=== PATIENT | female | born 1985 | race American Indian/Alaskan Native ===

== ENCOUNTER 2019-03-17 04:46 | Emergency (ER) | payer SELFPAY ==
[2019-03-17 05:29] LABS: Bilirubin,Urine NEG (Negative); Blood,Urine MOD (Negative); Color,Urine Yellow (Yellow); Urobilinogen,Urine < 2.0 mg/dL (<2.0); WBC,Urine < 1.0 /HPF (0.0-6.0)
[2019-03-17 05:31] LABS: Hematocrit 32.1 % (30.3-42.9); Hemoglobin 10.6 gm/dl (10.1-14.3); Mean Corpuscular HGB Conc 33 % (30-34); Mean Corpuscular Volume 78 fl (79-97); Platelet Count 320 K/mm3 (140-440); Red Cell Distribution Width 15.6 % (13.2-15.2)
[2019-03-17 05:31] LABS: Amphetamine Screen,Urine PRESUMPTIVE NEGATIVE; Benzodiazepines Screen,Urine PRESUMPTIVE NEGATIVE; Cannabinoid Screen,Urine PRESUMPTIVE NEGATIVE; Cocaine Screen,Urine PRESUMPTIVE NEGATIVE; Methadone Screen,Urine PRESUMPTIVE NEGATIVE; Opiate Screen,Urine PRESUMPTIVE NEGATIVE
[2019-03-17 05:49] LABS: BUN/Creatinine Ratio 11; Blood Urea Nitrogen 8 mg/dL (7-17); Calcium 8.6 mg/dL (8.4-10.2); Hemolysis Index 2
[2019-03-17] MEDS ORDERED: levETIRAcetam 1000 MG/NS 0.75% 1,000 MG/100 ML BAG IV ONE (06:33)
--- NOTE | 2019-03-17 06:34 | Emergency Department Report ---
ED Seizure HPI - General Chief Complaint: Seizure Stated Complaint: SEIZURE Time Seen by Provider: 03/17/19 06:09 Source: patient, EMS (EMS records not available at time of chart dictation.) Mode of arrival: Stretcher Limitations: No Limitations - History of Present Illness Initial Comments: The patient is a 33-year-old female. This patient is not known to this provider previously. The patient reports that she is not , and reports that she has not delivered her given within the past 6 weeks. During the history and physical examination, I am station cook and escorted by nurse Caesar Rawls The patient was recently seen at [facility], for a complaint of breakthrough seizure. She was given a prescription for Keppra. Apparently, the patient has not filled this prescription. She was at a fdc this evening, and reportedly had a seizure. The details of this seizure are not known. The patient states she has been in the [place] one [place], after moving from [facility]. At the moment, she denies headache, neck pain, chest pain, abdominal pain, shortness of breath or urinary symptoms, and she is asking to go home. MD Complaint: seizure -: Sudden Seizure History: known seizure disorder, history of non-compliance Place: other (fdc) Possible Precipitating Event: other (medication noncompliance) Associated Symptoms: denies other symptoms - Related Data Previous Rx's Medication Instructions Recorded Last Taken Type Amlodipine Besylate [Norvasc] 5 mg PO QDAY #30 tablet 03/17/19 Unknown Rx Magnesium Oxide [Magnesium] 400 mg PO QDAY #14 capsule 03/17/19 Unknown Rx levETIRAcetam [Keppra TAB] 500 mg PO BID #60 tablet 03/17/19 Unknown Rx Allergies Allergy/AdvReac Type Severity Reaction Status Date / Time No Known Allergies Allergy Unverified 03/17/19 05:05 ED Review of Systems ROS: Stated complaint: SEIZURE Other details as noted in HPI Constitutional: denies: fever Eyes: denies: eye discharge ENT: denies: congestion Respiratory: denies: wheezing Cardiovascular: denies: edema Gastrointestinal: denies: vomiting Genitourinary: denies: dysuria Skin: denies: lesions Neurological: denies: confusion Hematological/Lymphatic: denies: easy bleeding ED Past Medical Hx - Past Medical History Previous Medical History?: Yes Hx Hypertension: Yes Hx Seizures: Yes - Social History Smoking Status: Never Smoker Substance Use Type: None - Medications Home Medications: Home Medications Medication Instructions Recorded Confirmed Last Taken Type Amlodipine Besylate [Norvasc] 5 mg PO QDAY #30 tablet 03/17/19 Unknown Rx Magnesium Oxide [Magnesium] 400 mg PO QDAY #14 capsule 03/17/19 Unknown Rx levETIRAcetam [Keppra TAB] 500 mg PO BID #60 tablet 03/17/19 Unknown Rx ED Physical Exam - General Limitations: No Limitations General appearance: alert, in no apparent distress - Head Head exam: Present: atraumatic, normocephalic - Eye Eye exam: Present: normal appearance, PERRL, EOMI, other (visual acuity intact to finger counting in color perception on a close distance). Absent: nystagmus - ENT ENT exam: Present: normal exam, normal orophraynx, mucous membranes moist, normal external ear exam - Neck Neck exam: Present: normal inspection, full ROM. Absent: tenderness, meni ngismus - Respiratory Respiratory exam: Present: normal lung sounds bilaterally. Absent: respiratory distress - Cardiovascular Cardiovascular Exam: Present: regular rate, normal rhythm, normal heart sounds. Absent: bradycardia, tachycardia, irregular rhythm, systolic murmur, diastolic murmur, rubs, gallop - GI/Abdominal GI/Abdominal exam: Present: soft, normal bowel sounds. Absent: distended, tenderness, guarding, rebound, rigid, pulsatile mass - Extremities Exam Extremities exam: Present: normal inspection, full ROM, other (2+ pulses noted in the bilateral upper and lower extremities. The pelvis is stable. There is no long bony tenderness. The muscular compartments are soft. There is no redness, pus, streaking or erythema.). Absent: pedal edema, joint swelling, calf tenderness - Back Exam Back exam: Present: normal inspection, full ROM. Absent: tenderness, CVA tenderness (R), CVA tenderness (L), paraspinal tenderness, vertebral tenderness - Neurological Exam Neurological exam: Present: alert, oriented X3, normal gait, other (there is no facial droop. The tongue is midline. Extraocular movements are intact bilaterally. Speaking in full sentences. Hearing is grossly intact. 5 out of 5 strength bilateral upper and lower extremities. Sensation is intact to light touch bilateral upper and lower extremities.). Absent: motor sensory deficit - Psychiatric Psychiatric exam: Present: normal affect, normal mood - Skin Skin exam: Present: warm, dry, intact, normal color. Absent: rash ED Course Vital Signs 03/17/19 04:57 Temperature 99 F Pulse Rate 79 Respiratory 18 Rate Blood Pressure 181/109 [left arm] O2 Sat by Pulse 100 Oximetry ED Medical Decision Making - Lab Data Result diagrams: 03/17/19 05:16 03/17/19 05:16 Vital Signs 03/17/19 04:57 Temperature 99 F Pulse Rate 79 Respiratory 18 Rate Blood Pressure 181/109 [left arm] O2 Sat by Pulse 100 Oximetry Lab Results 03/17/19 03/17/19 03/17/19 Range/Units 05:11 05:11 05:16 WBC 6.1 (4.5-11.0) K/mm3 RBC 4.10 (3.65-5.03) M/mm3 Hgb 10.6 (10.1-14.3) gm/dl Hct 32.1 (30.3-42.9) % MCV 78 L (79-97) fl MCH 26 L (28-32) pg MCHC 33 (30-34) % RDW 15.6 H (13.2-15.2) % Plt Count 320 (140-440) K/mm3 Sodium (137-145) mmol/L Potassium (3.6-5.0) mmol/L Chloride (98-107) mmol/L Carbon Dioxide (22-30) mmol/L Anion Gap mmol/L BUN (7-17) mg/dL Creatinine (0.7-1.2) mg/dL Estimated GFR ml/min BUN/Creatinine Ratio % Glucose (65-100) mg/dL POC Glucose (70-105) Calcium (8.4-10.2) mg/dL Magnesium (1.7-2.3) mg/dL HCG, Qual (Negative) Urine Color Yellow (Yellow) Urine Turbidity Clear (Clear) Urine pH 6.0 (5.0-7.0) Ur Specific [place] 1.012 (1.003-1.030) Urine Protein 30 mg/dl (Negative) mg/dL Urine Glucose (UA) Neg (Negative) mg/dL Urine Ketones Neg (Negative) mg/dL Urine Blood Mod (Negative) Urine Nitrite Neg (Negative) Urine Bilirubin Neg (Negative) Urine Urobilinogen < 2.0 (<2.0) mg/dL Ur Leukocyte Esterase Neg (Negative) Urine WBC (Auto) < 1.0 (0.0-6.0) /HPF Urine RBC (Auto) 7.0 (0.0-6.0) /HPF U Epithel Cells (Auto) 1.0 (0-13.0) /HPF Urine Opiates Screen Presumptive negative Urine Methadone Screen Presumptive negative Ur Barbiturates Screen Presumptive negative Ur Phencyclidine Scrn Presumptive negative Ur Amphetamines Screen Presumptive negative U Benzodiazepines Scrn Presumptive negative Urine Cocaine Screen Presumptive negative U Marijuana (THC) Screen Presumptive negative Drugs of Abuse Note Disclamer 03/17/19 03/17/19 03/17/19 Range/Units 05:16 05:16 05:16 WBC (4.5-11.0) K/mm3 RBC (3.65-5.03) M/mm3 Hgb (10.1-14.3) gm/dl Hct (30.3-42.9) % MCV (79-97) fl MCH (28-32) pg MCHC (30-34) % RDW (13.2-15.2) % Plt Count (140-440) K/mm3 Sodium 138 (137-145) mmol/L Potassium 4.1 (3.6-5.0) mmol/L Chloride 102.9 (98-107) mmol/L Carbon Dioxide 24 (22-30) mmol/L Anion Gap 15 mmol/L BUN 8 (7-17) mg/dL Creatinine 0.7 (0.7-1.2) mg/dL Estimated GFR > 60 ml/min BUN/Creatinine Ratio 11 % Glucose 149 H (65-100) mg/dL POC Glucose (70-105) Calcium 8.6 (8.4-10.2) mg/dL Magnesium 1.60 L (1.7-2.3) mg/dL HCG, Qual Negative (Negative) Urine Color (Yellow) Urine Turbidity (Clear) Urine pH (5.0-7.0) Ur Specific [place] (1.003-1.030) Urine Protein (Negative) mg/dL Urine Glucose (UA) (Negative) mg/dL Urine Ketones (Negative) mg/dL Urine Blood (Negative) Urine Nitrite (Negative) Urine Bilirubin (Negative) Urine Urobilinogen (<2.0) mg/dL Ur Leukocyte Esterase (Negative) Urine WBC (Auto) (0.0-6.0) /HPF Urine RBC (Auto) (0.0-6.0) /HPF U Epithel Cells (Auto) (0-13.0) /HPF Urine Opiates Screen Urine Methadone Screen Ur Barbiturates Screen Ur Phencyclidine Scrn Ur Amphetamines Screen U Benzodiazepines Scrn Urine Cocaine Screen U Marijuana (THC) Screen Drugs of Abuse Note 03/17/19 Range/Units 05:20 WBC (4.5-11.0) K/mm3 RBC (3.65-5.03) M/mm3 Hgb (10.1-14.3) gm/dl Hct (30.3-42.9) % MCV (79-97) fl MCH (28-32) pg MCHC (30-34) % RDW (13.2-15.2) % Plt Count (140-440) K/mm3 Sodium (137-145) mmol/L Potassium (3.6-5.0) mmol/L Chloride (98-107) mmol/L Carbon Dioxide (22-30) mmol/L Anion Gap mmol/L BUN (7-17) mg/dL Creatinine (0.7-1.2) mg/dL Estimated GFR ml/min BUN/Creatinine Ratio % Glucose (65-100) mg/dL POC Glucose 149 H (70-105) Calcium (8.4-10.2) mg/dL Magnesium (1.7-2.3) mg/dL HCG, Qual (Negative) Urine Color (Yellow) Urine Turbidity (Clear) Urine pH (5.0-7.0) Ur Specific [place] (1.003-1.030) Urine Protein (Negative) mg/dL Urine Glucose (UA) (Negative) mg/dL Urine Ketones (Negative) mg/dL Urine Blood (Negative) Urine Nitrite (Negative) Urine Bilirubin (Negative) Urine Urobilinogen (<2.0) mg/dL Ur Leukocyte Esterase (Negative) Urine WBC (Auto) (0.0-6.0) /HPF Urine RBC (Auto) (0.0-6.0) /HPF U Epithel Cells (Auto) (0-13.0) /HPF Urine Opiates Screen Urine Methadone Screen Ur Barbiturates Screen Ur Phencyclidine Scrn Ur Amphetamines Screen U Benzodiazepines Scrn Urine Cocaine Screen U Marijuana (THC) Screen Drugs of Abuse Note - EKG Data -: EKG Interpreted by La - EKG Data 03/17/19 07:50 There is no prior EKG available for comparison. The EKG shows a sinus rhythm, 65 bpm, normal axis, QTC is within normal limits, there is low voltage, there is no endorsement of chest pain, this EKG is not consistent with ST elevation myocardial infarction. - Radiology Data Radiology results: report reviewed, image reviewed Noncontrast CT scan of the brain is negative for acute disease - Medical Decision Making Differential diagnosis, including but not limited to: Seizure, medication noncompliance, medication refill Assessment and plan: 33-year-old female, with reported history of seizure, observed in this department for a few hours without convulsive event. She is afebrile with reassuring vital signs, clinically sober, and walks with a steady gait. She has a GCS of 15. Elevated blood pressure is reviewed and appreciated, this is apparently a chronic condition, likely secondary to medication noncompliance. Please reference the [employer] clinical policy on hypertension which is not acutely symptomatic The patient will be given a good rx prescription card, her prescriptions will be refilled, we'll give a prescription for amlodipine for elevated blood pressure, magnesium oxide 4 hypomagnesemia. She'll need to follow up with an outpatient primary care doctor and/or neurology specialist. Critical care attestation.: If time is entered above; I have spent that time in minutes in the direct care of this critically ill patient, excluding procedure time. ED Disposition Clinical Impression: History of seizure, Elevated blood pressure reading, Medication refill Disposition: -01 TO HOME OR SELFCARE Is pt being admited?: No Does the pt Need Aspirin: No Condition: Stable Additional Instructions: Recommend the patient not drive or operate motor vehicles for the next 6 months, or until cleared to do so by a primary care doctor or neurologist. Recommend patient take her seizure medication twice daily as directed. Recommend patient follow up with a primary care doctor or neurologist within the next 7-10 days. Not taking seizure medication may cause breakthrough seizure, which may cause , disability, paralysis, loss of quality of life. Patient may use the affordable prescription card, good rx card, to assist in obtaining prescriptions at a reasonable naik is/cost. In addition, the patient may download the good rx application on her smartphone device to assist in finding a portable prescriptions. Also recommend that patient exercises tolerated, lose weight, and eat a balanced diet, including plenty of fiber, vesicles, leading protein. Patient was found to have evidence of obesity and high blood pressure/hypertension while here in the emergency room. Long-term complications of hypertension and obesity includes stroke, heart attack, disability, paralysis, loss of quality of life. Please return to the emergency room right away with projectile vomiting, change in mental status, confusion, inability to tolerate liquid feeds, new, worsened or different symptoms not present on the initial emergency room evaluation. Referrals: MEGAN SERRANO MD [Staff Physician] - 3-5 Days RIDGE VALLECILLO MD [Referring] - 3-5 Days CANELO RIVERA MD [Staff Physician] - 3-5 Days GIACOMO JERONIMO MD [Staff Physician] - 3-5 Days [facility] [Provider Group] - 3-5 Days
--- NOTE | 2019-03-17 07:29 | Cat Scan Report ---
Examination: CT of the head without contrast Clinical information: Seizure. Possible trauma. Comparison: None Technical: Multiple axial CT images of the head were obtained without intravenous contrast. Sagittal and coronal reformats were obtained. All CTs at this facility utilize dose reduction techniques inc luding automated exposure control, iterative reconstruction and weight based dosing when appropriate to reduce patient radiation dose to as low as reasonable achievable. Findings: There is no CT evidence of acute intracranial hemorrhage or large territorial infarct. The ventricular system appears normal in size. No extra-axial fluid collection is visualized. Evaluation of bony structures demonstrates no evidence of acute bony abnormality. The visualized para nasal sinuses and mastoid air cells are clear. Impression: 1. No CT evidence of acute intracranial process. Signer Name: Rosemary Carrillo MD Signed: 03/17/2019 7:25 AM Workstation Name: [id number]
[2019-03-17] MEDS ORDERED: MAGNESIUM OXIDE 400 MG TAB PO STA (07:57)
[2019-03-17 07:59] VITALS: BP 140/71
== END 2019-03-17 08:49 | disposition home or self-care (01) ==
LOC: ED 04:46
DX: R56.9 Unspecified convulsions (principal); I10 Essential (primary) hypertension
CPT/HCPCS: 36415; 70450; 80048; 80307; 81001; 82962; 83735; 84703; 85027; 93005; 93010; 96365; 99285; J1953

== ENCOUNTER 2019-08-18 04:14 | Emergency (ER) | payer SELFPAY ==
[2019-08-18 06:30] LABS: Hematocrit 33.6 % (30.3-42.9); Hemoglobin 10.9 gm/dl (10.1-14.3); Mean Corpuscular HGB Conc 32 % (30-34); Mean Corpuscular Volume 78 fl (79-97); Platelet Count 370 K/mm3 (140-440); Red Blood Count 4.33 M/mm3 (3.65-5.03); Red Cell Distribution Width 16.4 % (13.2-15.2)
[2019-08-18] MEDS ORDERED: levETIRAcetam 1000 MG/NS 0.75% 1,000 MG/100 ML BAG IV ONE (06:37)
[2019-08-18 06:43] LABS: BUN/Creatinine Ratio 11; Blood Urea Nitrogen 8 mg/dL (7-17); Calcium 9.1 mg/dL (8.4-10.2); Hemolysis Index 25
[2019-08-18 07:34] LABS: HCG Qualitative,Urine Negative (Negative)
--- NOTE | 2019-08-18 07:39 | Emergency Department Report ---
ED Seizure HPI - General Chief Complaint: Altered Mental Status Stated Complaint: AMS Time Seen by Provider: 08/18/19 06:24 Source: patient, EMS Mode of arrival: Stretcher Limitations: Altered Mental Status - History of Present Illness Initial Comments: 34-year-old female with a past medical history of obesity, hypertension, seizures presents to the hospital with 3 seizures prior to arrival. As per triage seizure lasted 10 to 15 minutes each. Patient states [place] Prior to that she was living in a fpc. Patient states she was kicked out of the fpc because the ambulance was coming to pick her up too often. Patient states she is taking a anticonvulsant that starts with LE. As per medical record patient was prescribed Keppra 500 mg twice daily in this past March. Patient states she is only taking her seizure medication once a day in the morning with last do se yesterday a.m. patient did injure her lower lip during seizure. No complaints of headache - Related Data Previous Rx's Medication Instructions Recorded Last Taken Type Amlodipine Besylate [Norvasc] 5 mg PO QDAY #30 tablet 03/17/19 Unknown Rx Magnesium Oxide [Magnesium] 400 mg PO QDAY #14 capsule 03/17/19 Unknown Rx levETIRAcetam [Keppra TAB] 500 mg PO BID #60 tablet 08/18/19 Unknown Rx Allergies Allergy/AdvReac Type Severity Reaction Status Date / Time No Known Allergies Allergy Unverified 03/17/19 05:05 ED Review of Systems ROS: Stated complaint: AMS Other details as noted in HPI Comment: All other systems reviewed and negative ED Past Medical Hx - Past Medical History Hx Hypertension: Yes Hx Seizures: Yes - Social History Smoking Status: Never Smoker Substance Use Type: None - Medications Home Medications: Home Medications Medication Instructions Recorded Confirmed Last Taken Type Amlodipine Besylate [Norvasc] 5 mg PO QDAY #30 tablet 03/17/19 Unknown Rx Magnesium Oxide [Magnesium] 400 mg PO QDAY #14 capsule 03/17/19 Unknown Rx levETIRAcetam [Keppra TAB] 500 mg PO BID #60 tablet 08/18/19 Unknown Rx ED Physical Exam - General Limitations: Altered Mental Status - Other Other exam information: General: No acute distress Head: Atraumatic Eyes: normal appearance ENT: Moist mucous membranes, swollen lower lip without laceration, no tongue laceration Neck: Normal appearance, no midline tenderness Chest: Clear to auscultation bilaterally CV: Regular rate and rhythm Abdomen: Soft, normal bowel sounds, nontender, nondistended, no rebound or guarding Back: Normal inspection Extremity: Normal inspection, full range of motion Neuro: Alert O x 3, no facial asymmetry, speech clear, no gross motor sensory deficit Psych: Appropriate behavior Skin: No rash ED Course Vital Signs 08/18/19 08/18/19 08/18/19 04:38 05:23 05:30 Temperature 98.2 F Pulse Rate 113 H 104 H Respiratory 18 15 Rate Blood Pressure 135/95 135/71 Blood Pressure 135/95 [Left] O2 Sat by Pulse 95 100 96 Oximetry 08/18/19 08/18/19 08/18/19 05:46 06:00 06:16 Temperature Pulse Rate 93 H 96 H 94 H Respiratory 15 25 H 24 Rate Blood Pressure 119/62 144/83 143/80 Blood Pressure [Left] O2 Sat by Pulse 97 97 96 Oximetry 08/18/19 08/18/19 08/18/19 06:30 06:46 07:00 Temperature Pulse Rate 91 H 91 H 90 Respiratory 23 26 H 16 Rate Blood Pressure 143/80 175/102 171/99 Blood Pressure [Left] O2 Sat by Pulse 98 94 97 Oximetry 08/18/19 08/18/19 07:17 08:15 Temperature Pulse Rate 90 95 H Respiratory 18 20 Rate Blood Pressure Blood Pressure 171/99 169/79 [Left] O2 Sat by Pulse 96 Oximetry - Reevaluation(s) Reevaluation #1: 08/18/19 09:17 after pt d/c pt found her sz med bottle. She is prescribed dilantin 100mg Er 3 tabs (300mg) daily. pt has a lot of medicine left in the bottle and does not appear to need a refill at this time. ED Medical Decision Making - Lab Data Result diagrams: 08/18/19 05:50 08/18/19 05:50 Lab Results 08/18/19 08/18/19 08/18/19 Range/Units 05:50 05:50 06:37 WBC 9.2 (4.5-11.0) K/mm3 RBC 4.33 (3.65-5.03) M/mm3 Hgb 10.9 (10.1-14.3) gm/dl Hct 33.6 (30.3-42.9) % MCV 78 L (79-97) fl MCH 25 L (28-32) pg MCHC 32 (30-34) % RDW 16.4 H (13.2-15.2) % Plt Count 370 (140-440) K/mm3 Sodium 135 L (137-145) mmol/L Potassium 4.0 (3.6-5.0) mmol/L Chloride 99.2 (98-107) mmol/L Carbon Dioxide 23 (22-30) mmol/L Anion Gap 17 mmol/L BUN 8 (7-17) mg/dL Creatinine 0.7 (0.7-1.2) mg/dL Estimated GFR > 60 ml/min BUN/Creatinine Ratio 11 % Glucose 213 H (65-100) mg/dL POC Glucose 207 H (70-105) Calcium 9.1 (8.4-10.2) mg/dL Magnesium (1.7-2.3) mg/dL Urine HCG, Qual (Negative) Urine Opiates Screen Urine Methadone Screen Ur Barbiturates Screen Ur Phencyclidine Scrn Ur Amphetamines Screen U Benzodiazepines Scrn Urine Cocaine Screen U Marijuana (THC) Screen 08/18/19 08/18/19 08/18/19 Range/Units 07:12 07:12 Unknown WBC (4.5-11.0) K/mm3 RBC (3.65-5.03) M/mm3 Hgb (10.1-14.3) gm/dl Hct (30.3-42.9) % MCV (79-97) fl MCH (28-32) pg MCHC (30-34) % RDW (13.2-15.2) % Plt Count (140-440) K/mm3 Sodium (137-145) mmol/L Potassium (3.6-5.0) mmol/L Chloride (98-107) mmol/L Carbon Dioxide (22-30) mmol/L Anion Gap mmol/L BUN (7-17) mg/dL Creatinine (0.7-1.2) mg/dL Estimated GFR ml/min BUN/Creatinine Ratio % Glucose (65-100) mg/dL POC Glucose (70-105) Calcium (8.4-10.2) mg/dL Magnesium 1.70 (1.7-2.3) mg/dL Urine HCG, Qual Negative (Negative) Urine Opiates Screen Presumptive negative Urine Methadone Screen Presumptive negative Ur Barbiturates Screen Presumptive negative Ur Phencyclidine Scrn Presumptive negative Ur Amphetamines Screen Presumptive negative U Benzodiazepines Scrn Presumptive negative Urine Cocaine Screen Presumptive negative U Marijuana (THC) Screen Presumptive negative - Medical Decision Making Patient requesting to be given her seizure medication since she does not have money. I explained we do not give out bottles of medication and will give her prescription with a good Rx card. Patient is currently only taking her seizure medication once a day and is likely it is prescribed twice a day. Labs unremarkable. Patient provided Keppra 1 g in the ED and will be discharged with a new prescription. Critical Care Time: No Critical care attestation.: If time is entered above; I have spent that time in minutes in the direct care of this critically ill patient, excluding procedure time. ED Disposition Clinical Impression: Seizure, Homeless Disposition: DC- TO HOME OR SELFCARE Is pt being admited?: No Does the pt Need Aspirin: No Condition: Stable Instructions: Epilepsy (ED) Additional Instructions: Take the medication as prescribed. Follow-up with your doctor or doctor/clinic provided. Return if symptoms worsen as indicated by your discharge instructions. Prescriptions: levETIRAcetam [Keppra TAB] 500 mg PO BID #60 tablet Referrals: PRIMARY MD EVERETT [Primary Care Provider] - 3-5 Days CANELO RIVERA MD [Staff Physician] - 3-5 Days (Neurologist) MEGAN SERRANO MD [Staff Physician] - 3-5 Days (Primary care doctor) [facility] [Provider Group] - 3-5 Days (Primary care clinic) Time of Disposition: 08:04
[2019-08-18 07:52] LABS: Amphetamine Screen,Urine PRESUMPTIVE NEGATIVE; Benzodiazepines Screen,Urine PRESUMPTIVE NEGATIVE; Cannabinoid Screen,Urine PRESUMPTIVE NEGATIVE; Cocaine Screen,Urine PRESUMPTIVE NEGATIVE; Methadone Screen,Urine PRESUMPTIVE NEGATIVE; Opiate Screen,Urine PRESUMPTIVE NEGATIVE
[2019-08-18 08:16] VITALS: BP 169/79
== END 2019-08-18 08:14 | disposition home or self-care (01) ==
LOC: ED 04:14
DX: G40.909 Epilepsy, unspecified, not intractable, without status epilepticus (principal); E66.9 Obesity, unspecified; I10 Essential (primary) hypertension; Z79.899 Other long term (current) drug therapy; Z68.43 Body mass index [BMI] 50.0-59.9, adult; Z59.0 Homelessness
CPT/HCPCS: 36415; 80048; 80307; 81025; 82962; 83735; 85027; 96365; 99284; J1953